=== PATIENT | male | born 2000 | race Caucasian/White ===

== ENCOUNTER 2022-05-24 21:34 | Emergency (ER) | payer MEDICAID ==
[~2022-05-24] VITALS: Ht 170.2 cm; Wt 80.8 kg
[2022-05-24] MEDS ORDERED: IBUPROFEN 400MG TABLET PO ONE (23:30)
[2022-05-24] MEDS ORDERED: LIDOCAINE 5% PATCH TOP SCH (23:30)
[2022-05-25 00:03] VITALS: BP 141/94
[2022-05-25] MEDS ORDERED: IBUP-2028 MT (01:04)
[2022-05-25] MEDS ORDERED: LIDO1ADH23 TP (01:04)
[2022-05-25] MEDS ORDERED: TOPUD PO (01:04)
== END 2022-05-25 02:26 | disposition home or self-care (01) ==
LOC: ER 21:34
DX: R07.81 Pleurodynia (principal); X50.0XXA Overexertion from strenuous movement or load, initial encounter; Y93.89 Activity, other specified; Y92.89 Other specified places as the place of occurrence of the external cause; Y99.8 Other external cause status
CPT/HCPCS: 71046; 99283